=== PATIENT | female | born 1975 | race Caucasian/White ===

== ENCOUNTER 2017-03-11 13:39 | Emergency (ER) | payer OTHER ==
[2017-03-11 15:20] LABS: HEMOGLOBIN 13.9 gm/dl (12.3-15.3); RED BLOOD COUNT 4.56 M/UL (4.00-5.10); WHITE BLOOD COUNT 12.2 K/UL (4.5-11.0)
[2017-03-11 15:34] LABS: BUN/CREATININE RATIO 13 (0-10)
== END 2017-03-11 17:30 | disposition home or self-care (01) ==
LOC: ER1 13:39
PROVIDERS: Emergency Medicine
DX: O20.0 Threatened abortion (principal); Z3A.01 Less than 8 weeks gestation of pregnancy
CPT/HCPCS: 36415; 76830; 80048; 81001; 84702; 85025; 85610; 85730; 99284